=== PATIENT | female | born 1965 | race Caucasian/White ===

== ENCOUNTER 2020-09-03 07:22 | Emergency (ER) | payer BC ==
[~2020-09-03] VITALS: Ht 154.9 cm; Wt 75.0 kg
--- NOTE | 2020-09-03 07:39 | NUR ---
PT FELL MONDAY. PT C/O RIGHT NECK AND SHOULDER PAIN. PT PAIN 02/09. PT STATES THE PAIN HAS BEEN INCREASING SINCE THE FALL AND WAS FEELING OK WITH SOAKING IN EPSOM SALT. PT DENIES NUMBNESS/TINGLING IN EXTS
[2020-09-03] MEDS ORDERED: ACETAMINOPHEN 500 MG TABLET ONE (07:47)
[2020-09-03] MEDS ORDERED: KETOROLAC 30 MG/1 ML ONE (07:47)
[2020-09-03] MEDS ORDERED: CYCLOBENZAPRINE 10 MG TABLET ONE (07:48)
[2020-09-03] MEDS ORDERED: CYCLOBENZAPRINE 10 MG TABLET PO ONE (08:00)
[2020-09-03] MEDS ORDERED: ACETAMINOPHEN 500 MG TABLET PO ONE (08:00)
[2020-09-03] MEDS ORDERED: KETOROLAC 30 MG/1 ML IM ONE (08:00)
--- NOTE | 2020-09-03 08:03 | NUR ---
PT BACK FROM CT
--- NOTE | 2020-09-03 08:49 | NUR ---
PT OFF THE FLOOR TO XRAY
--- NOTE | 2020-09-03 08:51 | NUR ---
RECEIVED REPORT FROM JOSELIN SCHWARTZ. PT CURRENTLY IN IMAGING.
--- NOTE | 2020-09-03 08:56 | NUR ---
PT BACK FROM IMAGING. RESTING ON [email or web address]. MONITORS IN PLACE. NADN. MELÉNDEZ.
[2020-09-03 08:57] VITALS: BP 142/52
== END 2020-09-03 09:52 | disposition home or self-care (01) ==
LOC: ED 08:30
DX: S16.1XXA Strain of muscle, fascia and tendon at neck level, initial encounter (principal); S43.401A Unspecified sprain of right shoulder joint, initial encounter; Z90.49 Acquired absence of other specified parts of digestive tract; Z90.710 Acquired absence of both cervix and uterus; W10.8XXA Fall (on) (from) other stairs and steps, initial encounter; Y93.01 Activity, walking, marching and hiking; Y92.89 Other specified places as the place of occurrence of the external cause; Y99.8 Other external cause status
CPT/HCPCS: 72125; 73030; 96372; 99284; J1885